=== PATIENT | male | born 1955 | race Caucasian/White ===

== ENCOUNTER 2017-11-05 03:36 | Emergency (ER) | payer MEDICAID ==
[~2017-11-05] VITALS: Ht 177.8 cm; Wt 77.1 kg
--- NOTE | 2017-11-05 04:05 | NUR ---
PT BIB FAMILY FROM HOME, PT FAMILY STATES PT HAS BEEN VOMITNG AND FEELING DIZZY X3 HOURS. PT STATES HE "FELT DIZZY WHILE LAYING DOWN, AND WHEN GETTING UP, IT GOT WORSE AND NAUSEA BEGAN." PT STATES TO HAVING 3 EPISODES OF [place] [employer]. PT SKIN IS PINK AND WARM. PT AAOX4. PT RESP EVEN AND NONE LABORED. NO S/S OF ACUTE DISTRESS NOTED. VSS. AWAITING MD RUSSO. PT PLACED ON MONITOR AND POX.
[2017-11-05] MEDS ORDERED: ONDANSETRON HCL/PF 4 MG/2 ML VIAL ONE (04:15)
[2017-11-05] MEDS ORDERED: ONDANSETRON HCL/PF 4 MG/2 ML VIAL IVP ONE (04:30)
[2017-11-05] MEDS ORDERED: IV NS 0.9% 1,000 ML BAG IV ONE (04:30)
--- NOTE | 2017-11-05 04:41 | NUR ---
RADIOLOGY BEDSIDE. PT TO CT
--- NOTE | 2017-11-05 04:50 | NUR ---
PT BACK FROM CT
[2017-11-05 04:57] LABS: BASOPHILS % (AUTO) 0.7 % (0.0-2.0); EOSINOPHILS # (AUTO) 0.2 /CMM (0.0-0.7); EOSINOPHILS % (AUTO) 3.2 % (0.0-6.0); HEMATOCRIT 41 % (39-51); LYMPHOCYTES % (AUTO) 14.8 % (20.0-44.0); MEAN CORPUSCULAR HEMOGLOBIN 31 PG (26.0-33.0); MEAN CORPUSCULAR HGB CONC 35 g/dl (31.0-36.0); MEAN CORPUSCULAR VOLUME 91 fL (80-96); MONOCYTES # (AUTO) 0.4 /CMM (0.1-1.30); MONOCYTES % (AUTO) 5.3 % (2.0-12.0); NEUTROPHILS # (AUTO) 5.1 /CMM (1.8-8.9); PLATELET COUNT (AUTO) 226 /CMM (150-450); RDW COEFFICIENT OF VARIATION 13.6 (11.5-15.0); RED BLOOD CELL COUNT(AUTO) 4.47 MIL/uL (4.5-6.0); WHITE BLOOD COUNT (AUTO) 6.8 K/uL (4.3-11.0)
[2017-11-05 05:04] LABS: CARBON DIOXIDE 27 mmol/L (21-32); CHLORIDE 105 mmol/L (98-107); CREATININE 1.3 mg/dL (0.6-1.3); GLUCOSE 150 mg/dL (74-106); POTASSIUM 3.4 mmol/L (3.5-5.1); SODIUM SERUM 142 mmol/L (136-145); UREA NITROGEN, BLOOD 21 mg/dL (7-18)
[2017-11-05 05:07] LABS: INR 0.96 (0.87-1.13)
[2017-11-05 05:10] LABS: ALANINE AMINOTRANSFERASE 35 U/L (12-78); ALKALINE PHOSPHATASE 84 U/L (46-116); ASPARTATE AMINOTRANSFERASE 20 U/L (15-37); BILIRUBIN,DIRECT 0.1 mg/dL (0.0-0.2); BILIRUBIN,TOTAL 0.9 mg/dL (0.2-1.0); TOTAL PROTEIN, SERUM 7.7 g/dL (6.4-8.2)
[2017-11-05 05:14] LABS: TROPONIN I < 0.017 ng/mL (0.00-0.056)
[2017-11-05 05:46] VITALS: BP 148/91
--- NOTE | 2017-11-05 05:46 | NUR ---
Patient discharged to home in stable condition. Written and verbal after care instructions given. Patient verbalizes understanding of instruction.IV removed. Catheter intact and site benign. Pressure and 4x4 applied to site. No bleeding noted. PT ambulated with steady gait out of ER accompanied by family members.
== END 2017-11-05 05:45 | disposition home or self-care (01) ==
LOC: ER 03:38
DX: R42 Dizziness and giddiness (principal); R11.2 Nausea with vomiting, unspecified; J32.9 Chronic sinusitis, unspecified
CPT/HCPCS: 36415; 70450-TC; 71045-TC; 80048-TC; 80076-TC; 82962-TC; 84484-TC; 85025-TC; 85730-TC; A4606; J2405; J7030; Z7610